=== PATIENT | female | born 1965 | race Caucasian/White ===

== ENCOUNTER → 2023-12-06 07:20 | Outpatient (REF) | payer OTHER, SELFPAY | LOC: HWRAD 07:20 | PROVIDERS: ATTENDING PHYSICIAN Internal Medicine Rheumatology; FAMILY PHYSICIAN Nurse Practitioner | DX: M54.9 Dorsalgia, unspecified (principal); M54.50 Low back pain, unspecified | CPT/HCPCS: 72100 ==

== ENCOUNTER → 2023-12-19 17:19 | Outpatient (REF) | payer OTHER, SELFPAY | LOC: PAVMRI 17:19 | PROVIDERS: ATTENDING PHYSICIAN Orthopaedic Surgery Hand Surgery; FAMILY PHYSICIAN Nurse Practitioner | DX: M79.642 Pain in left hand (principal); M25.532 Pain in left wrist | CPT/HCPCS: 73221 ==

== ENCOUNTER → 2024-01-10 07:17 | Outpatient (REF) | payer OTHER, SELFPAY | LOC: HWWDC 07:17 | PROVIDERS: ATTENDING PHYSICIAN Nurse Practitioner | DX: Z12.31 Encounter for screening mammogram for malignant neoplasm of breast (principal) | CPT/HCPCS: 77063; 77067 ==

== ENCOUNTER → 2024-01-12 09:29 | Outpatient (REF) | payer OTHER, SELFPAY | LOC: HWRAD 09:29 | PROVIDERS: ATTENDING PHYSICIAN Nurse Practitioner | DX: R82.90 Unspecified abnormal findings in urine (principal); R79.9 Abnormal finding of blood chemistry, unspecified; R10.9 Unspecified abdominal pain; Z87.42 Personal history of other diseases of the female genital tract | CPT/HCPCS: 74176 ==

== ENCOUNTER → 2024-12-06 07:46 | Outpatient (REF) | payer OTHER, SELFPAY | LOC: HWRAD 07:46 | PROVIDERS: ATTENDING PHYSICIAN Internal Medicine Rheumatology; FAMILY PHYSICIAN Nurse Practitioner | DX: M81.0 Age-related osteoporosis without current pathological fracture (principal) | CPT/HCPCS: 77080 ==

== ENCOUNTER → 2025-01-10 06:51 | Outpatient (REF) | payer OTHER, SELFPAY | LOC: HWWDC 06:51 | PROVIDERS: ATTENDING PHYSICIAN Nurse Practitioner | DX: Z12.31 Encounter for screening mammogram for malignant neoplasm of breast (principal) | CPT/HCPCS: 77063; 77067 ==